=== PATIENT | female | born 1945 | race Caucasian/White ===

== ENCOUNTER → 2017-01-05 | Outpatient (CLI) | payer OTHER ==
[~2017-01-05] MED LIST: ADVIN25/60 INH; ALBUAER2 INH; ALL300 PO; ASPCH81X PO; ASPITAB71 PO; ATOR-22 PO; CALC600T9 PO; COEN100C15 PO; DILT-119 PO; EXM25C PO; FERR-24 PO; Flonase INTNAS; LOSA100T2 PO; MULT-506 PO; NAPR1TAB9 PO; NVLGI7030 SC; NXM/40 PO; NYSTCRE11 TOP; RANI300T2 PO; SYN50 PO; TERA5CAP PO
[2017-01-05 10:17] LABS: BLOOD UREA NITROGEN 45 mg/dl (7-18)
[2017-01-05 10:27] LABS: ESTIMATED AVERAGE GLUCOSE 134 mg/dl; HA1C FLAG Normal (Normal)
--- NOTE | 2017-01-21 09:25 | CODING QUERY MEDICAL NECESSITY ---
CQSUPPORTING DIAGNOSIS NEEDED A supporting diagnosis is required for the test/procedure performed on this patient in order for us to be reimbursed by the patient's insurance. Please provide a supporting diagnosis for the following test/procedure listed below next to the test name along with your signature. *If there is no additional diagnosis for this patient that would support the following test/procedure please document that below next to the test/procedure. Test(s)/Procedure(s) that require a supporting diagnosis: DOS 01/05/17 GLYCATED HEMOGLOBIN TEST Provider Signature: Date: Thank you Fadia Bonner Health Information Management Once completed, please kindly fax back to [phone] For questions please call [phone]
== END | disposition home or self-care (01) ==
LOC: C.LAB1850 08:01
PROVIDERS: ATTEND Internal Medicine
DX: J45.909 Unspecified asthma, uncomplicated (principal); E11.9 Type 2 diabetes mellitus without complications

== ENCOUNTER → 2017-02-23 | Outpatient (CLI) | payer OTHER ==
--- NOTE | 2017-02-23 15:57 | MAMMOGRAPHY REPORT ---
UNILATERAL LEFT DIGITAL DIAGNOSTIC MAMMOGRAM TOMOSYNTHESIS WITH CAD AND TARGETED LEFT ULTRASOUND: 02/23/2017 CLINICAL HISTORY: 71-year-old woman presents for follow-up of an asymmetry anterior to surgical clip s in the left breast, and also a circumscribed hypoechoic benign appearing mass seen in the retroare olar left breast on ultrasound. She has a history of benign stereotactic biopsy performed in the 6: 00 axis in January 2016. TECHNIQUE: Left CC and MLO 2-D digital and tomosynthesis images, spot magnification left CC and ML views were obtained. Current study was also evaluated with a Computer Aided Detection (CAD) system. COMPARISON: Comparison is made to exams dated: 08/25/2016 ultrasound, 08/25/2016 mammogram, 02/15/20 16 mammogram, 08/16/2015 ultrasound, 08/16/2015 mammogram, and 02/07/2015 mammogram - [facility]. BREAST COMPOSITION: There are scattered areas of fibroglandular density in the left breast. FINDINGS: There is expected architectural distortion and associated surgical clips as well as benign rim calcifications in the 6:00 anterior left breast, at the site of prior lumpectomy. There is a s table dumbbell-shaped metallic biopsy marker in the 6:00 middle one third of the left breast, with m ild associated asymmetry, denoting the site of prior benign stereotactic biopsy. There is stable as ymmetry anterior to the surgical clips in the left breast. No obvious new spiculated or irregular m ass, focal area of architectural distortion or suspicious calcifications. Targeted ultrasound was performed in the retroareolar left breast to reevaluate the circumscribed hy poechoic benign appearing mass. In the left retroareolar breast, there is a 3.8 x 3.9 x 3.5 mm circ umscribed hypoechoic solid versus cystic mass. When comparing to prior ultrasounds, this appears st able to minimally decreased in size. Previous measurements performed July 2015 were 4.6 x 3.6 x 4.5 mm. IMPRESSION: ACR-BI-RADS CATEGORY 3: PROBABLY BENIGN, TARGETED ULTRASOUND ACR-BI-RADS CATEGORY 3: GA OBABLY BENIGN Stable mammographic appearance of the left breast including stable postsurgical and post biopsy stout ges. A circumscribed hypoechoic solid versus cystic mass in the retroareolar left breast is also st able to slightly decreased based on sonographic measurements, and most likely benign. A short inter nelida follow-up left diagnostic mammogram and possible ultrasound is recommended in 6 months. Annual right mammography is also due at that time. These results and recommendations were discussed with the patient at the time of the exam. Approximately 10% of breast cancers are not detected with mammography. A negative mammographic repor t should not delay biopsy if a clinically suggestive mass is present. Shantelle Smith M.D. ay/:02/23/2017 15:18:22 Preventive Maintenance Coordinator: Pau PICKETT(May)(M), [facility] letter sent: Follow Up Recommended 3 BI-RADS Code: ACR-BI-RADS Category 3: Probably Benign Ultrasound BI-RADS: ACR-BI-RADS Category 3: P robably Benign
== END | disposition home or self-care (01) ==
LOC: C.MAMM 08:58
PROVIDERS: ATTEND Internal Medicine Hematology & Oncology
DX: D05.02 Lobular carcinoma in situ of left breast (principal)

== ENCOUNTER → 2017-04-08 | Outpatient (CLI) | payer OTHER ==
[2017-04-08 09:41] LABS: MEAN CORPUSCULAR HGB CONC 32.5 g/dl (32-36)
[2017-04-08 09:50] LABS: URINE APPEARANCE CLEAR (CLEAR); URINE BILIRUBIN NEG (NEG); URINE COLOR YELLOW; URINE NITRITE NEG (NEG); URINE SPECIFIC GRAVITY 1.015 (1.000-1.030); UROBILINOGEN NEG (NEG)
[2017-04-08 09:54] LABS: ESTIMATED AVERAGE GLUCOSE 137 mg/dl; HA1C FLAG Normal (Normal)
[2017-04-08 09:55] LABS: MANUAL MICROSCOPIC REQUIRED? NO; REVIEW REQ? NO
[2017-04-08 10:04] LABS: HEMATOCRIT 39.1 % (37-47); MEAN CELL VOLUME 91.6 fL (80-100); MEAN CORPUSCULAR HEMOGLOBIN 29.7 pg (25-34); RED BLOOD COUNT 4.27 M/uL (4.2-5.4); WHITE BLOOD COUNT 7.47 K/uL (4.8-10.8)
[2017-04-08 10:12] LABS: BASO % 0.9 %; BASO ABS # 0.07 K/uL (0-0.2); CALCIUM 9.6 mg/dl (8.5-10.1); COMPLETE YES; EOS % 7.8 %; IG% 0.3 %; LYMPH % 32.3 %; LYMPH ABS # 2.41 K/uL (1.2-3.4); MEAN PLATELET VOLUME 12.7 fL (7.4-10.4); MONO % 8.3 %; NEUT % 50.4 %; PLATELET COUNT 151 K/uL (130-400)
[2017-04-08 10:13] LABS: LARGE PLATELETS 1+; PLT ESTIMATE DECREASED
[2017-04-08 10:14] LABS: ALT/SGPT 22 U/L (12-78); AST/SGOT 16 U/L (15-37); BLOOD UREA NITROGEN 40 mg/dl (7-18); CARBON DIOXIDE 22 mmol/L (21-32); CHLORIDE 114 mmol/L (98-107); CHOLESTEROL 137 mg/dl (0-200); GLUCOSE 100 mg/dl (70-99); POTASSIUM 4.6 mmol/L (3.5-5.1); SODIUM 146 mmol/L (136-145); TRIGLYCERIDES 103 mg/dl (0-150); VERY LOW DENSITY LIPOPROT CALC 21 mg/dl
[2017-04-08 10:24] LABS: CHOLESTEROL/HDL RATIO 3.8; HDL CHOLESTEROL 36 mg/dl; LDL CHOLESTEROL CALCULATED 80 mg/dl; PHOSPHORUS 3.8 mg/dl (2.5-4.9)
[2017-04-08 10:42] LABS: RATIO 1563.6 mcg/mg (0-30.0)
--- NOTE | 2017-04-13 09:21 | CODING QUERY MEDICAL NECESSITY ---
SUPPORTING DIAGNOSIS NEEDED Dr. Freedman, A supporting diagnosis is required for the test/procedure performed on this patient in order for us to be reimbursed by the patient's insurance. Please provide a supporting diagnosis for the following test/procedure listed below next to the test name along with your signature. *If there is no additional diagnosis for this patient that would support the following test/procedure please document that below next to the test/procedure. Test(s)/Procedure(s) that require a supporting diagnosis: * 38421 GLYCATED HEMOGLOBIN DIAGNOSIS: DATE OF SERVICE: 04/08/17 Provider Signature: Date: Thank you Frankie Blevins [facility] Information Management Once completed, please kindly fax back to [phone] For questions please call [phone]
== END | disposition home or self-care (01) ==
LOC: C.LAB1850 07:10
PROVIDERS: ATTEND Internal Medicine
DX: E78.00 Pure hypercholesterolemia, unspecified (principal); N28.9 Disorder of kidney and ureter, unspecified; E11.9 Type 2 diabetes mellitus without complications

== ENCOUNTER → 2017-07-11 | Outpatient (CLI) | payer OTHER ==
[2017-07-11 11:30] LABS: ESTIMATED AVERAGE GLUCOSE 137 mg/dl; HA1C FLAG Normal (Normal)
[2017-07-11 12:03] LABS: RATIO 1071.6 mcg/mg (0-30.0)
--- NOTE | 2017-07-28 08:03 | CODING QUERY MEDICAL NECESSITY ---
CQSUPPORTING DIAGNOSIS NEEDED A supporting diagnosis is required for the test/procedure performed on this patient in order for us to be reimbursed by the patient's insurance. Please provide a supporting diagnosis for the following test/procedure listed below next to the test name along with your signature. *If there is no additional diagnosis for this patient that would support the following test/procedure please document that below next to the test/procedure. Test(s)/Procedure(s) that require a supporting diagnosis: DOS 07/11/17 GLYCATED HEMOGLOBIN TEST Provider Signature: Date: Thank you Fadia Bonner Health Information Management Once completed, please kindly fax back to [phone] For questions please call [phone]
== END | disposition home or self-care (01) ==
LOC: C.LABBC 09:41
PROVIDERS: ATTEND Internal Medicine
DX: E78.00 Pure hypercholesterolemia, unspecified (principal)

== ENCOUNTER → 2017-10-20 | Outpatient (CLI) | payer OTHER ==
[2017-10-20 09:57] LABS: BASO % 0.7 %; BASO ABS # 0.05 K/uL (0-0.2); EOS % 6.8 %; EOS ABS # 0.49 K/uL (0-0.5); HEMOGLOBIN 12.4 g/dL (12.0-16.0); IG# 0.03 K/uL (0.00-0.02); LYMPH % 30.3 %; LYMPH ABS # 2.18 K/uL (1.2-3.4); MEAN CORPUSCULAR HEMOGLOBIN 29.2 pg (25-34); MEAN CORPUSCULAR HGB CONC 31.8 g/dl (32-36); MEAN PLATELET VOLUME 12.8 fL (7.4-10.4); MONO % 8.1 %; MONO ABS # 0.58 K/uL (0.11-0.59); NEUT % 53.7 %; NEUT ABS # 3.86 K/uL (1.4-6.5); PLATELET COUNT 147 K/uL (130-400); RED CELL DISTRIBUTION WIDTH CV 16.6 % (11.5-14.5); RED CELL DISTRIBUTION WIDTH SD 55.8 fL (36.4-46.3); WHITE BLOOD COUNT 7.19 K/uL (4.8-10.8)
[2017-10-20 10:12] LABS: HEMOGLOBIN A1C 6.2 % (4.5-5.6)
[2017-10-20 10:14] LABS: ALBUMIN 3.4 gm/dl (3.4-5.0); ALT/SGPT 23 U/L (12-78); AST/SGOT 18 U/L (15-37); BLOOD UREA NITROGEN 46 mg/dl (7-18); CALCIUM 9.2 mg/dl (8.5-10.1); CARBON DIOXIDE 23 mmol/L (21-32); CREATININE 2.34 mg/dl (0.60-1.20); GLUCOSE 80 mg/dl (70-99); POTASSIUM 4.9 mmol/L (3.5-5.1); SODIUM 143 mmol/L (136-145)
[2017-10-20 10:27] LABS: CHOLESTEROL 126 mg/dl (0-200); LDL CHOLESTEROL CALCULATED 69 mg/dl; PHOSPHORUS 3.8 mg/dl (2.5-4.9); URIC ACID 3.3 mg/dl (2.6-7.2)
--- NOTE | 2017-11-02 07:07 | CODING QUERY MEDICAL NECESSITY ---
SUPPORTING DIAGNOSIS NEEDED A supporting diagnosis is required for the test/procedure performed on this patient in order for us to be reimbursed by the patient's insurance. Please provide a supporting diagnosis for the following test/procedure listed below next to the test name along with your signature. *If there is no additional diagnosis for this patient that would support the following test/procedure please document that below next to the test/procedure. Test(s)/Procedure(s) that require a supporting diagnosis: * HEMOGLOBIN A1C DIAGNOSIS: Provider Signature: Date: Thank you Libby Locke [employer] Information Management Once completed, please kindly fax back to [phone] For questions please call [phone]
== END | disposition home or self-care (01) ==
LOC: C.LAB1850 07:42
PROVIDERS: ATTEND Internal Medicine
DX: E78.00 Pure hypercholesterolemia, unspecified (principal); E11.9 Type 2 diabetes mellitus without complications

== ENCOUNTER → 2018-02-09 | Outpatient (CLI) | payer OTHER | END | disposition home or self-care (01) | LOC: C.MAMM 10:20 | PROVIDERS: ATTEND Nurse Practitioner Family | DX: C50.919 Malignant neoplasm of unspecified site of unspecified female breast (principal); M85.80 Other specified disorders of bone density and structure, unspecified site ==

== ENCOUNTER → 2018-02-17 | Outpatient (CLI) | payer OTHER ==
[2018-02-17 09:36] LABS: MEAN CORPUSCULAR HGB CONC 32.2 g/dl (32-36)
[2018-02-17 09:43] LABS: HEMATOCRIT 37.6 % (37-47); HEMOGLOBIN 12.1 g/dL (12.0-16.0); MEAN CELL VOLUME 93.1 fL (80-100); RED CELL DISTRIBUTION WIDTH CV 16.4 % (11.5-14.5); RED CELL DISTRIBUTION WIDTH SD 55.7 fL (36.4-46.3); WHITE BLOOD COUNT 7.82 K/uL (4.8-10.8)
[2018-02-17 09:51] LABS: HEMOGLOBIN A1C 6.3 % (4.5-5.6)
[2018-02-17 09:52] LABS: ALBUMIN 3.5 gm/dl (3.4-5.0); ALT/SGPT 22 U/L (12-78); AST/SGOT 18 U/L (15-37); BLOOD UREA NITROGEN 46 mg/dl (7-18); CARBON DIOXIDE 23 mmol/L (21-32); CHOLESTEROL 135 mg/dl (0-200); CREATININE 2.46 mg/dl (0.60-1.20); GLUCOSE 131 mg/dl (70-99); POTASSIUM 4.7 mmol/L (3.5-5.1); SODIUM 146 mmol/L (136-145); URIC ACID 3.1 mg/dl (2.6-7.2)
[2018-02-17 10:00] LABS: MEAN PLATELET VOLUME 12.3 fL (7.4-10.4); PLATELET COUNT 140 K/uL (130-400)
[2018-02-17 10:01] LABS: BASO % 0.6 %; BASO ABS # 0.05 K/uL (0-0.2); EOS % 7.2 %; EOS ABS # 0.56 K/uL (0-0.5); IG# 0.03 K/uL (0.00-0.02); LYMPH % 28.5 %; LYMPH ABS # 2.23 K/uL (1.2-3.4); MONO % 6.3 %; MONO ABS # 0.49 K/uL (0.11-0.59); NEUT ABS # 4.46 K/uL (1.4-6.5)
[2018-02-17 10:03] LABS: LDL CHOLESTEROL CALCULATED 77 mg/dl; PHOSPHORUS 3.7 mg/dl (2.5-4.9)
== END | disposition home or self-care (01) ==
LOC: C.LAB1850 07:25
PROVIDERS: ATTEND Internal Medicine
DX: E78.00 Pure hypercholesterolemia, unspecified (principal)

== ENCOUNTER → 2018-06-11 | Outpatient (CLI) | payer OTHER ==
[2018-06-11 16:29] LABS: BASO % 1.1 %; BASO ABS # 0.07 K/uL (0-0.2); EOS % 5.7 %; EOS ABS # 0.36 K/uL (0-0.5); HEMATOCRIT 36.2 % (37-47); HEMOGLOBIN 11.5 g/dL (12.0-16.0); IG# 0.02 K/uL (0.00-0.02); LYMPH % 30.5 %; LYMPH ABS # 1.94 K/uL (1.2-3.4); MEAN CELL VOLUME 92.3 fL (80-100); MEAN CORPUSCULAR HEMOGLOBIN 29.3 pg (25-34); MEAN CORPUSCULAR HGB CONC 31.8 g/dl (32-36); MONO % 7.1 %; MONO ABS # 0.45 K/uL (0.11-0.59); NEUT % 55.3 %; NEUT ABS # 3.53 K/uL (1.4-6.5); PLATELET COUNT 140 K/uL (130-400); RED CELL DISTRIBUTION WIDTH CV 16.7 % (11.5-14.5); RED CELL DISTRIBUTION WIDTH SD 56.1 fL (36.4-46.3); WHITE BLOOD COUNT 6.37 K/uL (4.8-10.8)
[2018-06-11 16:34] LABS: HEMOGLOBIN A1C 6.3 % (4.5-5.6)
[2018-06-11 16:56] LABS: ALBUMIN 3.2 gm/dl (3.4-5.0); BLOOD UREA NITROGEN 39 mg/dl (7-18); CALCIUM 8.6 mg/dl (8.5-10.1); CARBON DIOXIDE 22 mmol/L (21-32); CREATININE 2.54 mg/dl (0.60-1.20); GLUCOSE 111 mg/dl (70-99); PHOSPHORUS 3.3 mg/dl (2.5-4.9); POTASSIUM 4.4 mmol/L (3.5-5.1); SODIUM 147 mmol/L (136-145)
== END | disposition home or self-care (01) ==
LOC: C.LAB1850 15:41
PROVIDERS: ATTEND Internal Medicine
DX: E11.9 Type 2 diabetes mellitus without complications (principal)

== ENCOUNTER 2022-07-12 18:01 | Inpatient (IN) ==
[2022-07-12 19:07] LABS: Hematocrit (blood only) 30.5 % (34.1-44.9); Hemoglobin 9.7 g/dl (12.0-16.0); Mean Corpuscular Hemoglobin 29.1 pg (25.0-34.0); Mean Corpuscular Hgb Conc 31.8 g/dL (32.0-36.0); Mean Corpuscular Volume 91.6 fL (80.0-100.0); RDW Coefficient of Variation 16.7 % (11.5-14.5); RDW Standard Deviation 55.8 fL (36.4-46.3); Red Blood Count 3.33 M/uL (3.93-5.22); White Blood Count 6.34 K/ul (4.8-10.8)
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
[2022-07-12 19:43] LABS: Troponin I High Sensitivity 19.5 pg/ml (0-14)
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
[2022-07-12 20:24] LABS: Basophils # (auto) 0.04 K/uL (0-0.2); Basophils % (auto) 0.6 %; Eosinophils # (auto) 0.47 K/uL (0-0.50); Eosinophils % (auto) 7.4 %; Immature Granulocytes # (auto) 0.04 K/uL (0.00-0.02); Immature Granulocytes % (auto) 0.6 %; Lymphocytes # (auto) 1.36 K/uL (1.2-3.4); Lymphocytes % (auto) 21.5 %; Mean Platelet Volume 13.4 fL (9.4-12.3); Monocytes # (auto) 0.42 K/uL (0.24-0.82); Monocytes % (auto) 6.6 %; Neutrophils # (auto) 4.01 K/uL (1.4-6.5); Neutrophils % (auto) 63.3 %; Platelet Count 124 K/uL (130-400)
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
[2022-07-12 20:45] LABS: Albumin Globulin Ratio 1.4 (0.9-2); Albumin Level 3.2 gm/dl (3.4-5.0); BUN Creatinine Ratio 11.8 (10-20); Bilirubin,Total 0.4 mg/dl (0.2-1.0); Creatinine Clr Calc Pharmacy 13.1 ml/min; Est GFR (Non-African American) 9.5 ml/min; Globulin 2.3 gm/dl (2.5-4.0); Magnesium 2.3 mg/dl (1.7-2.4); Potassium 4.2 mmol/L (3.5-5.1); Total Protein 5.5 gm/dl (6.0-8.3)
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
[2022-07-12] MEDS ORDERED: ONDANSETRON INJ 2 MG/ML 2 ML VIAL IV PRN (22:59)
[2022-07-12] MEDS ORDERED: GLUCOSE 40% GEL 15 GM TUBE PO PRN (23:01)
[2022-07-12] MEDS ORDERED: DEXTROSE 50% 50 ML SYRINGE IV PRN (23:01)
[2022-07-12] MEDS ORDERED: CARBOHYDRATES FOR HYPOGLYCEMIA PO PRN (23:01)
[2022-07-12] MEDS ORDERED: GLUCAGON FOR INJ 1 MG VIAL SQ PRN (23:01)
[2022-07-12] MEDS ORDERED: GLUCOSE 10 TAB/TUBE PO PRN (23:01)
[2022-07-13 01:09] LABS: Appearance Urine Clear (Clear); Bacteria Urine Automated Negative (Negative); Bilirubin Urine Negative (Negative); Blood Urine 1+ (Negative); Color Urine Yellow; Epithelial Cell Urine Auto >30 /lpf (0-5); Glucose Urine UA Negative (Negative); Ketones Urine Negative (Negative); Leukocyte Esterase Urine 1+ (Negative); Nitrite Urine Negative (Negative); Protein Urine 1+ (Negative); Specific Gravity Urine 1.012 (1.000-1.030); Urobilinogen Urine Negative (Negative)
[2022-07-13 01:19] LABS: RBC Urine Automated 0-4 /hpf (0-4)
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
[2022-07-13] MEDS ORDERED: DEXTROSE 50% 50 ML SYRINGE IV PRN (02:32)
[2022-07-13] MEDS ORDERED: GLUCOSE 40% GEL 15 GM TUBE PO PRN (02:32)
[2022-07-13] MEDS ORDERED: GLUCAGON FOR INJ 1 MG VIAL SQ PRN (02:32)
[2022-07-13] MEDS ORDERED: ONDANSETRON INJ 2 MG/ML 2 ML VIAL IV PRN (02:32)
[2022-07-13] MEDS ORDERED: ALBUTEROL HFA 8 GM INHALER INH PRN (02:32)
[2022-07-13] MEDS ORDERED: ACETAMINOPHEN 1000 MG/100 ML IV IV PRN (02:32)
[2022-07-13] MEDS ORDERED: CARBOHYDRATES FOR HYPOGLYCEMIA PO PRN (02:32)
[2022-07-13] MEDS ORDERED: GLUCOSE 10 TAB/TUBE PO PRN (02:32)
[2022-07-13] MEDS: ACETAMINOPHEN 325 MG TAB PO PRN ×2 (06:24→12:34)
[2022-07-13] MEDS: LEVOTHYROXINE SODIUM 50 MCG TABLET PO SCH (06:24)
[2022-07-13 06:28] LABS: Basophils # (auto) 0.05 K/uL (0-0.2); Basophils % (auto) 0.5 %; Eosinophils # (auto) 0.12 K/uL (0-0.50); Eosinophils % (auto) 1.3 %; Hematocrit (blood only) 29.4 % (34.1-44.9); Hemoglobin 9.2 g/dl (12.0-16.0); Immature Granulocytes # (auto) 0.05 K/uL (0.00-0.02); Immature Granulocytes % (auto) 0.5 %; Lymphocytes # (auto) 1.38 K/uL (1.2-3.4); Lymphocytes % (auto) 14.9 %; Mean Corpuscular Hemoglobin 28.9 pg (25.0-34.0); Mean Corpuscular Hgb Conc 31.3 g/dL (32.0-36.0); Mean Corpuscular Volume 92.5 fL (80.0-100.0); Mean Platelet Volume 12.9 fL (9.4-12.3); Monocytes # (auto) 0.65 K/uL (0.24-0.82); Neutrophils # (auto) 7.03 K/uL (1.4-6.5); Neutrophils % (auto) 75.8 %; Platelet Count 128 K/uL (130-400); RDW Coefficient of Variation 16.7 % (11.5-14.5); RDW Standard Deviation 55.8 fL (36.4-46.3); Red Blood Count 3.18 M/uL (3.93-5.22); White Blood Count 9.28 K/ul (4.8-10.8)
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
[2022-07-13 06:46] LABS: INR 1.1 (0.9-1.1); Partial Thromboplastin Time 26.5 Seconds (21.0-31.0); Prothrombin Time 11.4 Seconds (9.0-12.0)
[2022-07-13 06:57] LABS: Albumin Globulin Ratio 1.5 (0.9-2); Albumin Level 3.2 gm/dl (3.4-5.0); BUN Creatinine Ratio 12.6 (10-20); Bilirubin,Total 0.5 mg/dl (0.2-1.0); Calcium 9.2 mg/dl (8.5-10.1); Creatinine Clr Calc Pharmacy 13.2 ml/min; Est GFR (African American) 11.4 ml/min; Est GFR (Non-African American) 9.8 ml/min; Globulin 2.2 gm/dl (2.5-4.0); Magnesium 2.2 mg/dl (1.7-2.4); Potassium 4.1 mmol/L (3.5-5.1); Total Protein 5.4 gm/dl (6.0-8.3)
[2022-07-13] MEDS ORDERED: INSULIN ASPART PER UNIT SC SCH (07:30)
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
[2022-07-13] MEDS ORDERED: PERFLUTREN LIPID MICROSPHERE (DEFINITY) IV ONE (07:49)
--- NOTE | 2022-07-13 08:08 | Hospitalist Progress Note ---
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 swelling/contusion within the dorsum of the left wrist. There is a slightly comminuted, impacted, mildly displaced fracture of the distal left radius. This demonstrates intra-articular extension and up to 5 mm of dorsal displacement. Irregularity at the ulnar styloid is likely chronic. No dislocation. IMPRESSION: Left distal radius fracture as described above. Echo 07/13/22: Left ventricular systolic function is normal. No regional wall motion abnormalities noted. This is mild concentric left ventricular hypertrophy. EF 60-65%. There is mild mitral regurgitation. There is mild tricuspid regurgitation. Aortic valve sclerosis moderate, without significant aortic valvular stenosis. Compared with study of 08/22/2021, no significant change. No pericardial effusion. Resident Activity Tracking Resident Involvement: Resident Care Provided Care Provided: Adult Hospital Medicine (1) Hypothyroidism Hypothyroidism type: unspecified Qualified Code(s): E03.9 - Hypothyroidism, unspecified (2) Diabetes mellitus type II, controlled Diabetes mellitus complication detail: with chronic kidney disease Diabetes mellitus complication status: with kidney complications Diabetes mellitus half-way insulin use: with half-way use (3) Hypertension Hypertension type: primary hypertension Qualified Code(s): I10 - Essential (primary) hypertension
[2022-07-13] MEDS ORDERED: ATORVASTATIN 40 MG TAB PO SCH (09:00)
[2022-07-13] MEDS ORDERED: LOSARTAN POTASSIUM 50 MG TAB PO SCH (09:00)
[2022-07-13] MEDS ORDERED: FAMOTIDINE 40 MG TABLET PO SCH (09:00)
[2022-07-13] MEDS: PANTOprazole 40 MG TAB PO SCH (09:13)
[2022-07-13] MEDS: FLUTICASONE/VILANTEROL 200/25MCG 14 PUFFS/INHALER INH SCH (09:13)
[2022-07-13] MEDS: dilTIAZem ER 180 MG CAPCR PO SCH (09:13)
[2022-07-13] MEDS: FUROSEMIDE 80 MG TAB PO SCH (09:14)
[2022-07-13] MEDS: CALCITRIOL 0.25 MCG CAPSULE PO SCH (09:14)
[2022-07-13] MEDS: CHOLECALCIFEROL 1,000 UNITS 25 MCG TAB PO SCH (09:14)
[2022-07-13] MEDS: allopurinoL 100 MG TAB PO SCH (09:14)
[2022-07-13] MEDS: FERROUS SULFATE 325 MG TAB PO SCH ×2 (09:14→20:39)
[2022-07-13] MEDS: INSULIN ASPART PER UNIT SC SCH ×4 (09:40→20:03)
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
[2022-07-13] MEDS ORDERED: Nursing to Pharmacy Communication SCH (11:45)
--- NOTE | 2022-07-13 12:09 | XCELERA ---
[id number]
--- NOTE | 2022-07-13 12:33 | Electrocardiogram Report ---
Test Reason : Blood Pressure : / mmHG Vent. Rate : 088 BPM Atrial Rate : 088 BPM P-R Int : 360 ms QRS Dur : 076 ms QT Int : 420 ms P-R-T Axes : -28 -42 050 degrees QTc Int : 508 ms Sinus rhythm with 1st degree A-V block Left axis deviation Low voltage QRS Inferior infarct , age undetermined Anterior infarct , age undetermined Abnormal ECG When compared with ECG of 25-AUG-2014 14:13, QRS axis Shifted left Anterior infarct are now Present Inferior infarct is now Present QT has lengthened Confirmed by Seferino Barahona ([id number]) on 07/13/2022 12:33:19 PM Referred By: REFERRED SELF Confirmed By:Seferino Barahona
--- NOTE | 2022-07-13 12:56 | Electrocardiogram Report ---
Test Reason : Blood Pressure : / mmHG Vent. Rate : 086 BPM Atrial Rate : 090 BPM P-R Int : 000 ms QRS Dur : 068 ms QT Int : 386 ms P-R-T Axes : 000 -52 047 degrees QTc Int : 461 ms Accelerated Junctional rhythm with frequent Premature ventricular complexes Left axis deviation Low voltage QRS Inferior infarct (cited on or before 12-JUL-2022) Anterolateral infarct (cited on or before 21-JUL-2008) Abnormal ECG When compared with ECG of 12-JUL-2022 18:11, (unconfirmed) Junctional rhythm has replaced Sinus rhythm Confirmed by Seferino Barahona ([id number]) on 07/13/2022 12:56:02 PM Referred By: REFERRED SELF Confirmed By:Seferino Barahona
--- NOTE | 2022-07-13 19:01 | Billing Data ---
Date of Service July 13, 2022 Coding Level of Care Code 51136 Subseq Hosp Care Lvl 3
[2022-07-13] MEDS: LOSARTAN POTASSIUM 50 MG TAB PO SCH (20:39)
[2022-07-13] MEDS: ATORVASTATIN 40 MG TAB PO SCH ×2 (20:39→21:00)
[2022-07-13] MEDS: FAMOTIDINE 40 MG TABLET PO SCH (20:40)
[2022-07-14] MEDS: LEVOTHYROXINE SODIUM 50 MCG TABLET PO SCH (06:42)
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
[2022-07-14 08:12] LABS: INR 1.1 (0.9-1.1); Partial Thromboplastin Time 28.5 Seconds (21.0-31.0); Prothrombin Time 11.3 Seconds (9.0-12.0)
[2022-07-14 08:12] LABS: Estimated Average Glucose 151 mg/dl; Hemoglobin A1C 6.9 % (4.5-5.6)
[2022-07-14 08:16] LABS: Albumin Globulin Ratio 1.4 (0.9-2); Albumin Level 3.1 gm/dl (3.4-5.0); BUN Creatinine Ratio 12.7 (10-20); Bilirubin,Total 0.5 mg/dl (0.2-1.0); Creatinine Clr Calc Pharmacy 11.7 ml/min; Est GFR (African American) 9.8 ml/min; Est GFR (Non-African American) 8.5 ml/min; Globulin 2.2 gm/dl (2.5-4.0); Magnesium 2.3 mg/dl (1.7-2.4); Potassium 3.8 mmol/L (3.5-5.1); Total Protein 5.3 gm/dl (6.0-8.3)
[2022-07-14] MEDS: FLUTICASONE/VILANTEROL 200/25MCG 14 PUFFS/INHALER INH SCH (08:42)
[2022-07-14] MEDS: FUROSEMIDE 80 MG TAB PO SCH (08:42)
[2022-07-14] MEDS: CALCITRIOL 0.25 MCG CAPSULE PO SCH (08:43)
[2022-07-14] MEDS: allopurinoL 100 MG TAB PO SCH (08:43)
[2022-07-14] MEDS: dilTIAZem ER 180 MG CAPCR PO SCH (08:43)
[2022-07-14] MEDS: FERROUS SULFATE 325 MG TAB PO SCH ×2 (08:43→21:05)
[2022-07-14] MEDS: CHOLECALCIFEROL 1,000 UNITS 25 MCG TAB PO SCH (08:43)
[2022-07-14] MEDS: PANTOprazole 40 MG TAB PO SCH (08:43)
[2022-07-14] MEDS: INSULIN ASPART PER UNIT SC SCH ×4 (08:44→20:30)
[2022-07-14] MEDS: ACETAMINOPHEN 325 MG TAB PO PRN ×3 (08:52→17:15)
[2022-07-14 09:18] LABS: Basophils # (auto) 0.06 K/uL (0-0.2); Basophils % (auto) 0.6 %; Eosinophils # (auto) 0.31 K/uL (0-0.50); Eosinophils % (auto) 3.3 %; Hematocrit (blood only) 25.6 % (34.1-44.9); Immature Granulocytes # (auto) 0.07 K/uL (0.00-0.02); Immature Granulocytes % (auto) 0.8 %; Lymphocytes # (auto) 1.35 K/uL (1.2-3.4); Lymphocytes % (auto) 14.5 %; Mean Corpuscular Hgb Conc 31.3 g/dL (32.0-36.0); Mean Corpuscular Volume 92.8 fL (80.0-100.0); Mean Platelet Volume 12.9 fL (9.4-12.3); Monocytes % (auto) 8.6 %; Neutrophils # (auto) 6.73 K/uL (1.4-6.5); Neutrophils % (auto) 72.2 %; Platelet Count 131 K/uL (130-400); RDW Coefficient of Variation 16.8 % (11.5-14.5); RDW Standard Deviation 56.4 fL (36.4-46.3); Red Blood Count 2.76 M/uL (3.93-5.22); White Blood Count 9.32 K/ul (4.8-10.8)
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
[2022-07-14 11:26] LABS: Hematocrit (blood only) 25.8 % (34.1-44.9); Hemoglobin 7.9 g/dl (12.0-16.0)
--- NOTE | 2022-07-14 13:29 | Electrocardiogram Report ---
Test Reason : Blood Pressure : / mmHG Vent. Rate : 083 BPM Atrial Rate : 040 BPM P-R Int : 000 ms QRS Dur : 068 ms QT Int : 376 ms P-R-T Axes : 000 -38 060 degrees QTc Int : 441 ms Accelerated Junctional rhythm with occasional Premature ventricular complexes Left axis deviation Low voltage QRS Inferior infarct (cited on or before 12-JUL-2022) Cannot rule out Anteroseptal infarct (cited on or before 21-JUL-2008) Abnormal ECG When compared with ECG of 13-JUL-2022 05:47, No significant change Confirmed by Mik King ([id number]) on 07/14/2022 1:28:44 PM Referred By: REFERRED SELF Confirmed By:Mik King
[2022-07-14 20:09] LABS: Hematocrit (blood only) 25.5 % (34.1-44.9); Hemoglobin 8.1 g/dl (12.0-16.0)
[2022-07-14] MEDS: ATORVASTATIN 40 MG TAB PO SCH (21:04)
[2022-07-14] MEDS: FAMOTIDINE 40 MG TABLET PO SCH (21:05)
[2022-07-14] MEDS: LOSARTAN POTASSIUM 50 MG TAB PO SCH (21:05)
[2022-07-15 01:34] LABS: Basophils # (auto) 0.06 K/uL (0-0.2); Basophils % (auto) 0.5 %; Eosinophils # (auto) 0.31 K/uL (0-0.50); Eosinophils % (auto) 2.4 %; Hematocrit (blood only) 23.8 % (34.1-44.9); Hemoglobin 7.5 g/dl (12.0-16.0); Immature Granulocytes # (auto) 0.14 K/uL (0.00-0.02); Immature Granulocytes % (auto) 1.1 %; Lymphocytes # (auto) 1.52 K/uL (1.2-3.4); Lymphocytes % (auto) 11.9 %; Mean Corpuscular Hemoglobin 29.4 pg (25.0-34.0); Mean Corpuscular Hgb Conc 31.5 g/dL (32.0-36.0); Mean Corpuscular Volume 93.3 fL (80.0-100.0); Mean Platelet Volume 12.4 fL (9.4-12.3); Monocytes # (auto) 1.19 K/uL (0.24-0.82); Monocytes % (auto) 9.3 %; Neutrophils # (auto) 9.57 K/uL (1.4-6.5); Neutrophils % (auto) 74.8 %; Platelet Count 123 K/uL (130-400); RDW Coefficient of Variation 16.8 % (11.5-14.5); RDW Standard Deviation 56.5 fL (36.4-46.3); Red Blood Count 2.55 M/uL (3.93-5.22); White Blood Count 12.79 K/ul (4.8-10.8)
[2022-07-15 01:44] LABS: INR 1.1 (0.9-1.1); Partial Thromboplastin Ratio 1.1; Prothrombin Time 11.4 Seconds (9.0-12.0)
[2022-07-15 02:10] LABS: Albumin Globulin Ratio 1.3 (0.9-2); Albumin Level 2.8 gm/dl (3.4-5.0); BUN Creatinine Ratio 12.5 (10-20); Bilirubin,Total 0.6 mg/dl (0.2-1.0); Calcium 8.6 mg/dl (8.5-10.1); Creatinine Clr Calc Pharmacy 10.5 ml/min; Est GFR (African American) 8.6 ml/min; Est GFR (Non-African American) 7.4 ml/min; Globulin 2.1 gm/dl (2.5-4.0); Magnesium 2.2 mg/dl (1.7-2.4); Potassium 4.1 mmol/L (3.5-5.1); Total Protein 4.9 gm/dl (6.0-8.3)
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
[2022-07-15 02:35] LABS: RBC Morphology Unremarkable
[2022-07-15 04:36] LABS: Hematocrit (blood only) 23.5 % (34.1-44.9); Hemoglobin 7.4 g/dl (12.0-16.0)
[2022-07-15] MEDS: LEVOTHYROXINE SODIUM 50 MCG TABLET PO SCH (06:36)
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
[2022-07-15] MEDS: FLUTICASONE/VILANTEROL 200/25MCG 14 PUFFS/INHALER INH SCH (08:22)
[2022-07-15] MEDS: INSULIN ASPART PER UNIT SC SCH ×4 (08:23→21:24)
[2022-07-15] MEDS: dilTIAZem ER 180 MG CAPCR PO SCH (08:24)
[2022-07-15] MEDS: CALCITRIOL 0.25 MCG CAPSULE PO SCH (08:24)
[2022-07-15] MEDS: FUROSEMIDE 80 MG TAB PO SCH (08:24)
[2022-07-15] MEDS: CHOLECALCIFEROL 1,000 UNITS 25 MCG TAB PO SCH (08:25)
[2022-07-15] MEDS: allopurinoL 100 MG TAB PO SCH (08:25)
[2022-07-15] MEDS: FERROUS SULFATE 325 MG TAB PO SCH ×2 (08:25→21:29)
[2022-07-15] MEDS: ACETAMINOPHEN 325 MG TAB PO PRN ×2 (08:32→17:06)
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
[2022-07-15] MEDS: PANTOprazole 40 MG TAB PO SCH (09:47)
[2022-07-15 11:16] LABS: Hematocrit (blood only) 22.5 % (34.1-44.9); Hemoglobin 7.2 g/dl (12.0-16.0)
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
--- NOTE | 2022-07-15 15:31 | Electrocardiogram Report ---
Test Reason : Blood Pressure : / mmHG Vent. Rate : 056 BPM Atrial Rate : 064 BPM P-R Int : 000 ms QRS Dur : 076 ms QT Int : 424 ms P-R-T Axes : -14 -43 044 degrees QTc Int : 409 ms Sinus rhythm with 2nd degree A-V block (Mobitz I) Left axis deviation Low voltage QRS Inferior infarct (cited on or before 12-JUL-2022) Cannot rule out Anteroseptal infarct (cited on or before 21-JUL-2008) Abnormal ECG When compared with ECG of 14-JUL-2022 14:46, (unconfirmed) 2nd degree AV block is now present Confirmed by Mik King ([id number]) on 07/15/2022 3:31:12 PM Referred By: REFERRED SELF Confirmed By:Mik King
--- NOTE | 2022-07-15 16:03 | XRay Report ---
XR chest 2V PA/lateral HISTORY: Dysrhythmia. assess cardiac silhouette COMPARISON: Chest 07/12/2022. FINDINGS: No pneumothorax. There are low lung volumes. There is mild to moderate enlargement of the c ardiac silhouette, unchanged. No new focal lung consolidations to suggest a pneumonia. No evidence fo r pulmonary edema. Mitral annulus calcifications are noted. There are trace bilateral pleural effusio ns. IMPRESSION: 1. No change in the mild to moderate cardiomegaly. 2. Trace bilateral pleural effusions. ACT 112: Negative or not required by law. Electronically signed by: Delfino Barney M.D. 07/15/2022 4:01 PM
--- NOTE | 2022-07-15 16:17 | Electrocardiogram Report ---
Test Reason : Blood Pressure : / mmHG Vent. Rate : 074 BPM Atrial Rate : 080 BPM P-R Int : 000 ms QRS Dur : 074 ms QT Int : 400 ms P-R-T Axes : 000 -46 059 degrees QTc Int : 444 ms Sinus rhythm with 1st degree A-V block with frequent Premature ventricular complexes Premature atrial complexes Left axis deviation Low voltage QRS Inferior infarct (cited on or before 12-JUL-2022) Cannot rule out Anteroseptal infarct (cited on or before 21-JUL-2008) Abnormal ECG When compared with ECG of 14-JUL-2022 14:51, (unconfirmed) No significant change Confirmed by Mik King ([id number]) on 07/15/2022 4:16:49 PM Referred By: REFERRED SELF Confirmed By:Mik King
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
[2022-07-15 19:56] LABS: Hematocrit (blood only) 23.2 % (34.1-44.9); Hemoglobin 7.4 g/dl (12.0-16.0)
[2022-07-15] MEDS: FAMOTIDINE 40 MG TABLET PO SCH (21:29)
[2022-07-15] MEDS: ATORVASTATIN 40 MG TAB PO SCH (21:29)
[2022-07-16] MEDS: LEVOTHYROXINE SODIUM 50 MCG TABLET PO SCH (06:01)
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
[2022-07-16 07:44] LABS: Basophils # (auto) 0.05 K/uL (0-0.2); Basophils % (auto) 0.4 %; Eosinophils # (auto) 0.53 K/uL (0-0.50); Eosinophils % (auto) 4.2 %; Hematocrit (blood only) 24.5 % (34.1-44.9); Hemoglobin 7.7 g/dl (12.0-16.0); Immature Granulocytes # (auto) 0.16 K/uL (0.00-0.02); Immature Granulocytes % (auto) 1.3 %; Lymphocytes # (auto) 1.26 K/uL (1.2-3.4); Lymphocytes % (auto) 10.1 %; Mean Corpuscular Hemoglobin 29.5 pg (25.0-34.0); Mean Corpuscular Hgb Conc 31.4 g/dL (32.0-36.0); Mean Corpuscular Volume 93.9 fL (80.0-100.0); Mean Platelet Volume 12.6 fL (9.4-12.3); Monocytes # (auto) 1.01 K/uL (0.24-0.82); Monocytes % (auto) 8.1 %; Neutrophils # (auto) 9.51 K/uL (1.4-6.5); Neutrophils % (auto) 75.9 %; Nucleated RBC # (auto) 0.03 K/uL (0-0); Nucleated RBC % (auto) 0.2 %; Platelet Count 137 K/uL (130-400); RDW Coefficient of Variation 16.7 % (11.5-14.5); RDW Standard Deviation 56.1 fL (36.4-46.3); Red Blood Count 2.61 M/uL (3.93-5.22); White Blood Count 12.52 K/ul (4.8-10.8)
[2022-07-16 08:01] LABS: Polychromasia 1+
[2022-07-16 08:10] LABS: Albumin Globulin Ratio 1.2 (0.9-2); BUN Creatinine Ratio 14.5 (10-20); Bilirubin,Total 0.7 mg/dl (0.2-1.0); Calcium 9.1 mg/dl (8.5-10.1); Creatinine Clr Calc Pharmacy 10.9 ml/min; Est GFR (African American) 9.1 ml/min; Est GFR (Non-African American) 7.9 ml/min; Globulin 2.6 gm/dl (2.5-4.0); Magnesium 2.5 mg/dl (1.7-2.4); Potassium 4.2 mmol/L (3.5-5.1); Total Protein 5.6 gm/dl (6.0-8.3)
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
[2022-07-16 08:25] LABS: Ferritin 376.3 ng/ml (8-388)
[2022-07-16] MEDS: INSULIN ASPART PER UNIT SC SCH ×4 (08:45→21:04)
[2022-07-16] MEDS: allopurinoL 100 MG TAB PO SCH (08:47)
[2022-07-16] MEDS: FLUTICASONE/VILANTEROL 200/25MCG 14 PUFFS/INHALER INH SCH (08:47)
[2022-07-16] MEDS: CHOLECALCIFEROL 1,000 UNITS 25 MCG TAB PO SCH (08:47)
[2022-07-16] MEDS: FERROUS SULFATE 325 MG TAB PO SCH ×2 (08:47→20:59)
[2022-07-16] MEDS: CALCITRIOL 0.25 MCG CAPSULE PO SCH (08:47)
[2022-07-16] MEDS: PANTOprazole 40 MG TAB PO SCH (08:47)
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
[2022-07-16] MEDS ORDERED: EPOETIN ALFA 40,000 UNITS/ML VIAL SQ ONE (10:26)
[2022-07-16] MEDS: IRON SUCROSE 200 MG in 0.9 % SODIUM CHLORIDE 100 ML IV SCH (12:28)
[2022-07-16 13:16] LABS: Hematocrit (blood only) 24.5 % (34.1-44.9); Hemoglobin 7.8 g/dl (12.0-16.0)
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
[2022-07-16 20:40] LABS: Hematocrit (blood only) 22.6 % (34.1-44.9); Hemoglobin 7.3 g/dl (12.0-16.0)
[2022-07-16] MEDS: FAMOTIDINE 40 MG TABLET PO SCH (20:58)
[2022-07-16] MEDS: ATORVASTATIN 40 MG TAB PO SCH (20:58)
[2022-07-17] MEDS: LEVOTHYROXINE SODIUM 50 MCG TABLET PO SCH (06:24)
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
[2022-07-17 07:59] LABS: Basophils # (auto) 0.06 K/uL (0-0.2); Basophils % (auto) 0.5 %; Eosinophils % (auto) 5.2 %; Hematocrit (blood only) 24.2 % (34.1-44.9); Hemoglobin 7.7 g/dl (12.0-16.0); Immature Granulocytes # (auto) 0.21 K/uL (0.00-0.02); Immature Granulocytes % (auto) 1.8 %; Lymphocytes # (auto) 1.64 K/uL (1.2-3.4); Lymphocytes % (auto) 14.2 %; Mean Corpuscular Hemoglobin 29.1 pg (25.0-34.0); Mean Corpuscular Hgb Conc 31.8 g/dL (32.0-36.0); Mean Corpuscular Volume 91.3 fL (80.0-100.0); Mean Platelet Volume 12.2 fL (9.4-12.3); Monocytes # (auto) 0.92 K/uL (0.24-0.82); Neutrophils # (auto) 8.11 K/uL (1.4-6.5); Neutrophils % (auto) 70.3 %; Nucleated RBC # (auto) 0.07 K/uL (0-0); Nucleated RBC % (auto) 0.6 %; Platelet Count 172 K/uL (130-400); RDW Coefficient of Variation 16.6 % (11.5-14.5); RDW Standard Deviation 55.4 fL (36.4-46.3); Red Blood Count 2.65 M/uL (3.93-5.22); White Blood Count 11.54 K/ul (4.8-10.8)
[2022-07-17 08:28] LABS: Albumin Globulin Ratio 1.2 (0.9-2); BUN Creatinine Ratio 15.6 (10-20); Bilirubin,Total 0.9 mg/dl (0.2-1.0); Calcium 9.2 mg/dl (8.5-10.1); Creatinine Clr Calc Pharmacy 11.7 ml/min; Est GFR (African American) 9.9 ml/min; Est GFR (Non-African American) 8.6 ml/min; Globulin 2.6 gm/dl (2.5-4.0); Magnesium 2.4 mg/dl (1.7-2.4); Potassium 3.9 mmol/L (3.5-5.1); Total Protein 5.6 gm/dl (6.0-8.3)
[2022-07-17 08:30] LABS: Polychromasia 1+; Rouleaux 1+
[2022-07-17] MEDS: CALCITRIOL 0.25 MCG CAPSULE PO SCH (08:53)
[2022-07-17] MEDS: allopurinoL 100 MG TAB PO SCH (08:54)
[2022-07-17] MEDS: PANTOprazole 40 MG TAB PO SCH (08:54)
[2022-07-17] MEDS: FERROUS SULFATE 325 MG TAB PO SCH ×2 (08:54→21:02)
[2022-07-17] MEDS: INSULIN ASPART PER UNIT SC SCH ×4 (08:56→20:56)
[2022-07-17] MEDS: FLUTICASONE/VILANTEROL 200/25MCG 14 PUFFS/INHALER INH SCH (08:56)
[2022-07-17] MEDS: CHOLECALCIFEROL 1,000 UNITS 25 MCG TAB PO SCH (08:57)
[2022-07-17] MEDS: IRON SUCROSE 200 MG in 0.9 % SODIUM CHLORIDE 100 ML IV SCH (09:02)
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
[2022-07-17 14:09] LABS: Hematocrit (blood only) 25.7 % (34.1-44.9); Hemoglobin 8.1 g/dl (12.0-16.0)
[2022-07-17] MEDS: DICYCLOMINE HCL 20 MG TAB PO SCH ×2 (14:52→21:02)
[2022-07-17] MEDS: ATORVASTATIN 40 MG TAB PO SCH (21:02)
[2022-07-17] MEDS: FAMOTIDINE 40 MG TABLET PO SCH (21:02)
[2022-07-18] MEDS ORDERED: RAPID SEQUENCE INDUCTION BAG ONE (05:58)
[2022-07-18] MEDS ORDERED: PROPOFOL IV EMULSION 10 MG/ML 100 ML VIAL IV ONE (06:06)
[2022-07-18] MEDS ORDERED: STAT IV Infusion **Titration per Protocol STA (06:39)
[2022-07-18] MEDS ORDERED: PROPOFOL BOLUS FROM BAG IV PRN (06:39)
[2022-07-18] MEDS ORDERED: niCARdipine 25 MG in SODIUM CHLORIDE 0.9% 240 ML IV SCH (06:45)
[2022-07-18] MEDS ORDERED: propofoL 1,000 MG/100 ML VIAL IV SCH (06:45)
--- NOTE | 2022-07-18 06:54 | CT Scan Report ---
CT OF THE HEAD WITHOUT CONTRAST CLINICAL HISTORY: acute AMs, respiratory distress COMPARISON STUDY: Head CT July 12, 2022. TECHNIQUE: Helical axial images of the head were obtained without IV contrast. Automated exposure con trol was utilized for the study. A dose lowering technique was utilized adhering to the principles o f ALARA. FINDINGS: There is been interval development of a large 6.8 x 3.4 cm intraparenchymal hematoma center ed within the left frontotemporal region involving the basal ganglia since head CT of July 12. There is associated vasogenic edema. There is intraventricular extension with hemorrhage through out the ventricular system. There is also extensive subarachnoid hemorrhage predominantly overlying t he bilateral frontal and temporal lobes. These findings are new since prior exam. There is associated mass effect with compression of the left lateral ventricle and 4 mm rightward midline shift. Hemorrh age within the basal cisterns is noted. No acute calvarial fracture is present. IMPRESSION: Interval development of a large acute 6.8 x 3.4 cm intraparenchymal hematoma within the left frontotemporal region involving the basal ganglia with extensive associated intraventricular and subarachnoid hemorrhage. Moderate mass effect with compression of the left lateral ventricle and 4 m m of rightward midline shift. The etiology for this hemorrhage is not entirely clear although this co uld reflect a hypertensive hemorrhage. Although less likely, a ruptured aneurysm cannot be excluded. Neurosurgical consultation is recommended. These findings were discussed with Dejuan Robertson at time of di ctation. ACT 112: Negative or not required by law. Electronically signed by: Tim Arechiga M.D. 07/18/2022 6:52 AM
--- NOTE | 2022-07-18 07:04 | Procedure Note ---
Procedure Note Date of Service July 18, 2022 Note DOS: 07/18/2022 Intubation for airway protection Given vomiting and unresponsiveness, decision was made to emergently intubate the patient in conjunction with buzzle buffer FIELD GAUGER. A time-out was completed verifying correct patient, procedure, site, positioning, and special equipment if applicable. The patient was placed in a flat position. Patient was sedated with etomidate 10 mg IV and paralyzed with rocuronium 10 mg IV. The patient was easily ventilated using an ambu bag. SpO2 was 100%. The Glidescope was used and inserted into the oropharynx. Substantial saliva was present in the back of the throat and obstructed the view of the vocal cords. It was suctioned. An endotracheal tube was inserted and visualized going through the vocal cords. The stylette was removed. Colorimetric change was visualized on the CO2 meter. Breath sounds were heard in both lung bonilla equally. The endotracheal tube was placed at 24 cm, measured at the teeth. A chest CT was ordered along with the head CT to ensure proper placement. The patient tolerated the procedure well and there were no complications. After intubation, the patient's SpO2 was 100%. Coding
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
--- NOTE | 2022-07-18 07:10 | Communication Note ---
Date of Service: July 18, 2022 Code Va was called at approx. 6am. I went immediately. Patient was obtunded and had vomitus/saliva coming from right side of the mouth. Pupils were disconjugate with left deviated to the left side. Patient was unresponsive to verbal and painful stimuli. Vitals were otherwise stable with BP ~170/80, HR 80s, RR: 18 with SpO2 ~90% on 2L NC. Elected to intubate for airway protection and this proceeded smoothly. CT head shows large left intraventricular hemorrhage. This was relayed to the patient's sister as the patient's was not able to be contacted. She reported the patient would want everything done, and approved of transfer. Transfer to [facility] was arranged with Dr. Brush of the neurointensive care accepting the patient. Family was notified and agreed with the plan.
[2022-07-18 07:14] LABS: Basophils # (auto) 0.06 K/uL (0-0.2); Basophils % (auto) 0.5 %; Eosinophils # (auto) 0.25 K/uL (0-0.50); Hematocrit (blood only) 27.6 % (34.1-44.9); Hemoglobin 8.9 g/dl (12.0-16.0); Immature Granulocytes # (auto) 0.41 K/uL (0.00-0.02); Immature Granulocytes % (auto) 3.2 %; Lymphocytes # (auto) 1.02 K/uL (1.2-3.4); Mean Corpuscular Hemoglobin 30.3 pg (25.0-34.0); Mean Corpuscular Hgb Conc 32.2 g/dL (32.0-36.0); Mean Corpuscular Volume 93.9 fL (80.0-100.0); Mean Platelet Volume 12.3 fL (9.4-12.3); Monocytes # (auto) 0.67 K/uL (0.24-0.82); Monocytes % (auto) 5.3 %; Neutrophils # (auto) 10.35 K/uL (1.4-6.5); Nucleated RBC # (auto) 0.11 K/uL (0-0); Nucleated RBC % (auto) 0.9 %; Platelet Count 215 K/uL (130-400); RDW Standard Deviation 56.6 fL (36.4-46.3); Red Blood Count 2.94 M/uL (3.93-5.22); White Blood Count 12.76 K/ul (4.8-10.8)
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
[2022-07-18 07:27] LABS: Partial Thromboplastin Ratio 0.9; Partial Thromboplastin Time 25.4 Seconds (21.0-31.0); Prothrombin Time 11.1 Seconds (9.0-12.0)
[2022-07-18 07:34] LABS: Albumin Level 3.2 gm/dl (3.4-5.0); BUN Creatinine Ratio 16.1 (10-20); Bilirubin,Total 1.1 mg/dl (0.2-1.0); Calcium 9.4 mg/dl (8.5-10.1); Creatinine Clr Calc Pharmacy 12.4 ml/min; Est GFR (African American) 10.6 ml/min; Est GFR (Non-African American) 9.2 ml/min; Globulin 3.1 gm/dl (2.5-4.0); Potassium 4.3 mmol/L (3.5-5.1); Total Protein 6.3 gm/dl (6.0-8.3)
[2022-07-18 07:40] LABS: iSTAT Allen Test Pass; iSTAT Arterial Blood Gas HCO3 21 meg/L (19-24); iSTAT Arterial Blood Gas pCO2 37 mmHg (35-46); iSTAT Arterial Blood Gas pH 7.37 (7.35-7.45); iSTAT Arterial Blood Gas pO2 225 mmHg (80-95); iSTAT Carbon Dioxide 23 mmol/L (24-31); iSTAT FiO2 80 %; iSTAT Site R Radial
[2022-07-18 07:52] LABS: Troponin I High Sensitivity 830.9 pg/ml (0-14)
--- NOTE | 2022-07-18 07:59 | Communication Note ---
Date of Service: July 18, 2022 Critical CARE addendum: Signout was given from Carroll Hannah and Dr. Hernandes. ABG 7.36/37/225 on 80% with PEEP of 5. Respirate was increased to 24 and tidal volume was increased to 430 hyperventilate the patient at there was midline shift appreciated on the CT of the head CT chest shows diffuse right-sided infiltrate upper and lower lobes. Likely a spiration For the subarachnoid and intraventricular hemorrhage try to keep the systolic blood pressure less than 160 and diastolic less than 110 Peak/INR/PTT was within normal limit At the time of examination patient was on nicardipine drip and propofol 20. She was breathing with the vent Blood pressure was in the 140s by 80s. Not in any acute distress. Constitutional: No acute distress HEENT: Sluggish pupil response, positive ETT Respiratory system: Decreased air entry on the right side, positive crackles bilateral lower lobes, no wheeze, no rhonchi CVS: S1-S2 positive, no murmurs or gallops, irregular Abdomen: Soft, nontender, nondistended, positive bowel sounds x4 Extremities: +2 pulses bilaterally radialis/ dorsalis pedis, no cyanosis, +1 pitting edema bilateral lower extremity Neuro: Breathing with the vent, sedated on propofol, positive gag Psych: Unable to assess G/U: Positive Acuna Musculoskeletal: Hematoma appreciated on the right flank as well as the right side of the chest. Plan: Patient to be transferred to [place]. Continue to hyperventilate to keep pH around 7.4-7.45. Consideration should be given to antibiotic given new consolidative process ap preciated in the right upper and right lower lobe likely aspiration. Given the patient is already being transferred I will defer it to the receiving ICU team Troponins were elevated to 830. It is not uncommon to have elevated troponins especially in somebody with subarachnoid bleed. Patient was not on any antiplatelet medication except aspirin. I have personally spent 33 minutes of critical care time in the direct management of this patient. This is a life/limb threatening event. This includes time spent evaluating patient, direct bedside care, chart review, placing orders, interpretation of diagnostic studies, discussion with consultants, patient, and family members, as well as other required patient management activities. This time is exclusive of all separately billable procedures, and teaching time and separate from and in addition to any other critical care service time. Please note the above document was generated using voice recognition software. It may contain grammatical, syntax or spelling errors. Coding Level of Care Code Critical Care magdy addt'l 30 min Time Spent (min) 33
[2022-07-18] MEDS ORDERED: ROCURONIUM BROMIDE 10 MG/ML 5 ML VIAL IV ONE (08:14)
[2022-07-18] MEDS ORDERED: ETOMIDATE 2 MG/ML 20 ML VIAL IV ONE (08:14)
--- NOTE | 2022-07-18 08:21 | CT Scan Report ---
CT chest diagnostic wo con CT DOSE: 3083.79 mGy.cm HISTORY: acute altered mental status with respiratory failure, polytrauma, blood loss anemia TECHNIQUE: Multiaxial CT images of the chest were performed without contrast. A dose lowering techni que was utilized adhering to the principles of ALARA. COMPARISON: Chest CTA 07/12/2022. FINDINGS: Partially visualized small subcutaneous contusions/hematomas within the right breast appear ed of slightly improved in the interval. The visualized liver and spleen are unremarkable. There is a 1.7 cm right thyroid nodule again noted. No mediastinal hematoma or lymphadenopathy. Normal caliber esophagus. The heart remains enlarged. No pericardial effusion. There are trace bilateral pleural eff usions. No acute fractures within the visualized osseous structures. No pneumothorax. The endotrachea l tube terminates approximately 1 cm from the doron. This is coursing towards the right mainstem bro nchus and therefore should be pulled back by approximately 2 cm. Normal caliber thoracic aorta with m ild calcified plaque. Trace pericardial fluid is noted. Trace mucoid material within the mainstem bro nchi. There is mild interlobular septal thickening. Interval development of patchy airspace opacities within the bilateral lower lobes and dense consolidation within the apical segment of the right uppe r lobe. This likely represents a pneumonia. This could be due to aspiration given the partial opacifi cation of the right upper lobe bronchi. Trace partially loculated fluid within the right lung apex. IMPRESSION: 1. Endotracheal tube terminates 1 cm from the doron and is coursing towards the right mainstem bronc hus. This should be pulled back by approximately 2 cm. 2. Interval progression of the consolidative airspace opacities within the right upper lobe and bilat eral lower lobes. This likely represents a pneumonia could be due to aspiration. 3. Trace bilateral pleural effusions and a trace pericardial effusion. 4. Cardiomegaly with mild interlobular septal thickening within the lungs. This favors mild congestiv e change. 5. Subcutaneous contusion/hematomas within the right chest wall/breast have slightly improved. ACT 112: Negative or not required by law. Electronically signed by: Delfino Barney M.D. 07/18/2022 8:19 AM
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
== END 2022-07-18 08:15 | disposition short-term general hospital (02) | DRG 604 ==
LOC: ED 18:01 → 2S 21:51 → SUATTDRO 21:51 → 2S 07-13 02:15 → 1E 07-18 06:09